=== PATIENT | male | born 1970 | race African-American/Black ===

== ENCOUNTER 2017-05-02 13:54 | Emergency (ER) | payer OTHER ==
[2017-05-02] MEDS ORDERED: Lidocaine 1% PF 5 ML VIAL ONE (14:11)
[2017-05-02] MEDS ORDERED: Adacel (T-DAP) 0.5 ML VIAL ONE (14:11)
== END 2017-05-02 14:41 | disposition home or self-care (01) ==
LOC: SCSER 13:54
DX: S01.112A Laceration without foreign body of left eyelid and periocular area, initial encounter (principal); E78.5 Hyperlipidemia, unspecified; I10 Essential (primary) hypertension; G47.00 Insomnia, unspecified; F32.9 Major depressive disorder, single episode, unspecified; Z79.899 Other long term (current) drug therapy; W22.8XXA Striking against or struck by other objects, initial encounter
CPT/HCPCS: 12013; 90471; 90715; J2001

== ENCOUNTER 2017-05-12 14:18 | Emergency (ER) | payer OTHER | END 2017-05-12 14:31 | disposition home or self-care (01) | LOC: SCSER 14:18 | DX: S01.81XD Laceration without foreign body of other part of head, subsequent encounter (principal); E78.5 Hyperlipidemia, unspecified; I10 Essential (primary) hypertension; F32.9 Major depressive disorder, single episode, unspecified; G47.00 Insomnia, unspecified; Z79.52 Long term (current) use of systemic steroids; Z79.899 Other long term (current) drug therapy ==

== ENCOUNTER 2017-11-01 14:04 | Emergency (ER) | payer OTHER ==
[2017-11-01] MEDS ORDERED: Ketorolac Tromethamine 60 MG/2 ML VIAL ONE (14:28)
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
== END 2017-11-01 14:56 | disposition home or self-care (01) ==
LOC: SCSER 14:04
DX: S39.012A Strain of muscle, fascia and tendon of lower back, initial encounter (principal); E78.5 Hyperlipidemia, unspecified; I10 Essential (primary) hypertension; F32.9 Major depressive disorder, single episode, unspecified; G47.00 Insomnia, unspecified; Z79.899 Other long term (current) drug therapy; W17.89XA Other fall from one level to another, initial encounter
CPT/HCPCS: 72100; 96372; J1885